=== PATIENT | male | born 1970 | race African-American/Black ===

== ENCOUNTER 2016-05-09 16:33 | Emergency (ER) | payer MEDICAID ==
[~2016-05-09] VITALS: Ht 193 cm; Wt 117.9 kg
[~2016-05-09 16:33] MED LIST: ALPR2TAB2 PO; ARIP15TA2 PO; FLUO40CA8 PO; HYDR-552 PO; HYDR25TA4 PO; LEVE750T4 PO
[2016-05-09 17:03] VITALS: BP 142/71
== END 2016-05-09 17:11 | disposition home or self-care (01) ==
LOC: ER 16:38
DX: Z76.0 Encounter for issue of repeat prescription (principal); Z88.0 Allergy status to penicillin; Z88.8 Allergy status to other drugs, medicaments and biological substances; F32.9 Major depressive disorder, single episode, unspecified; F20.9 Schizophrenia, unspecified
CPT/HCPCS: A4606; Z7610

== ENCOUNTER 2017-12-04 15:26 | Emergency (ER) | payer MEDICAID ==
[~2017-12-04 15:26] MED LIST changes: -ARIP15TA2 PO; +ARIP15TA3 PO
--- NOTE | 2017-12-04 15:58 | NUR ---
CALLED NAME NOT IN THE WAITING ROOM.
--- NOTE | 2017-12-04 16:42 | NUR ---
PT NOT IN THE WAITING ROOM.
== END 2017-12-04 16:44 | disposition left against medical advice (07) ==
LOC: ER 15:29
DX: Z53.21 Procedure and treatment not carried out due to patient leaving prior to being seen by health care provider (principal); R11.10 Vomiting, unspecified

== ENCOUNTER 2018-06-17 10:46 | Emergency (ER) | payer MEDICAID ==
[~2018-06-17] VITALS: Ht 195.6 cm; Wt 120.2 kg
[~2018-06-17 10:46] MED LIST changes: +HYDR-4384 PO; -HYDR-552 PO
--- NOTE | 2018-06-17 11:45 | NUR ---
C/O LEFT LOWER QUADRANT PAIN SINCE YESTERDAY. PAIN DOES NOT RADIATE. PT IS AOX4, AMBULATORY, VSS, RR EVEN AND UNLABORED ON RA. SKIN INTACT, AND NO ACUTE DISTRESS NOTED. MADE COMFORTABLE. SEEN BY NANETTE BURTON. WAITING FOR ORDERS.
[2018-06-17] MEDS ORDERED: KETOROLAC TROMETHAMINE INJ 30 MG/ML VIAL ONE (11:50)
[2018-06-17] MEDS: KETOROLAC TROMETHAMINE INJ 60 MG/2 ML VIAL IM ONE (11:56)
[2018-06-17 11:57] LABS: APPEARANCE,URINE Clear (CLEAR); BILIRUBIN,URINE Negative (NEGATIVE); BLOOD, URINE Negative Ery/uL (NEGATIVE); COLOR,URINE Yellow (YELLOW); KETONES,URINE Trace (NEGATIVE); LEUKOCYTE ESTERASE ,URINE Negative (NEGATIVE); NITRITE, URINE Negative (NEGATIVE); PH,URINE 6.5 (5.0-8.0); PROTEIN,URINE Negative (NEGATIVE); UGLUCOSE Negative (NEGATIVE)
[2018-06-17 12:08] LABS: BACTERIA,URINE Rare /HPF (None Seen); RBC,URINE NONE SEEN /HPF (0-2); SQUAMOUS EPITHELIAL CELL,UR Rare /HPF (None Seen); WBC,URINE 0-2 /HPF (0-3)
[2018-06-17 12:27] LABS: BASOPHILS % (AUTO) 0.5 % (0.0-2.0); EOSINOPHILS % (AUTO) 3.6 % (0.0-6.0); HEMATOCRIT 45 % (39-51); HEMOGLOBIN 15.2 g/dL (13.5-17.5); LYMPHOCYTES # (AUTO) 1.6 /CMM (0.8-4.8); LYMPHOCYTES % (AUTO) 29.7 % (20.0-44.0); MEAN CORPUSCULAR HGB CONC 34 g/dl (31.0-36.0); MEAN CORPUSCULAR VOLUME 98 fL (80-96); MONOCYTES # (AUTO) 0.4 /CMM (0.1-1.30); MONOCYTES % (AUTO) 8.4 % (2.0-12.0); NEUTROPHILS # (AUTO) 3.1 /CMM (1.8-8.9); NEUTROPHILS % (AUTO) 57.8 % (43.0-81.0); PLATELET COUNT (AUTO) 134 /CMM (150-450); RED BLOOD CELL COUNT(AUTO) 4.57 MIL/uL (4.5-6.0); WHITE BLOOD COUNT (AUTO) 5.3 K/uL (4.3-11.0)
[2018-06-17 12:37] LABS: CALCIUM, SERUM 9.1 mg/dL (8.5-10.1); CREATININE 1.4 mg/dL (0.6-1.3); POTASSIUM 3.8 mmol/L (3.5-5.1)
[2018-06-17 12:43] LABS: ALBUMIN 3.7 g/dL (3.4-5.0); BILIRUBIN,DIRECT 0.1 mg/dL (0.0-0.2); BILIRUBIN,TOTAL 0.4 mg/dL (0.2-1.0); TOTAL PROTEIN, SERUM 7.2 g/dL (6.4-8.2)
--- NOTE | 2018-06-17 13:14 | NUR ---
Patient is resting comfortably in bed with eyes closed. Easily aroused. VSS
--- NOTE | 2018-06-17 13:30 | NUR ---
PT STATES NO PAIN RELIEF. PA NOTIFIED.
[2018-06-17] MEDS ORDERED: HYDROCODONE/APAP 5/325MG 1 EACH TABLET ONE (13:33)
--- NOTE | 2018-06-17 13:34 | NUR ---
PT TAKEN TO CT VIA LISA
[2018-06-17] MEDS: HYDROCODONE/APAP 5/325MG 1 EACH TABLET PO ONE (13:50)
--- NOTE | 2018-06-17 13:50 | NUR ---
PT BACK FROM CT. [facility]. PAIN MED GIVEN PER ORDER
--- NOTE | 2018-06-17 14:37 | NUR ---
Patient discharged to home in stable condition. Written and verbal after care instructions given. Patient verbalizes understanding of instruction.
[2018-06-17 14:38] VITALS: BP 121/78
== END 2018-06-17 14:35 | disposition home or self-care (01) ==
LOC: ER 10:49
DX: R10.32 Left lower quadrant pain (principal); M54.5 Low back pain; F25.9 Schizoaffective disorder, unspecified; F32.9 Major depressive disorder, single episode, unspecified; D86.9 Sarcoidosis, unspecified; F17.200 Nicotine dependence, unspecified, uncomplicated; Z88.8 Allergy status to other drugs, medicaments and biological substances; Z88.0 Allergy status to penicillin; Z79.899 Other long term (current) drug therapy
CPT/HCPCS: 36415; 74176; 80048; 80076; 81001; 83690; 85025; 96372; 99284; 99406; J1885; 81000-TC